=== PATIENT | female | born 1945 | race Caucasian/White ===

== ENCOUNTER → 2021-05-16 00:38 | Outpatient (CLI) | payer MEDICARE, OTHER, SELFPAY ==
[2021-05-16 20:43] LABS: SARS-CoV-2 RNA PCR Positive
== END ==
PROVIDERS: PCP Family Medicine; Visit Provider Physician Assistant
DX: U07.1 COVID-19 (principal)
CPT/HCPCS: C9803; U0003; U0005

== ENCOUNTER 2021-08-25 00:21 | Day surgery (SDC) | payer MEDICARE, OTHER, SELFPAY ==
[2021-08-22 12:27] VITALS: BMI 33.3
[2021-08-25] VITALS (9 sets, daily range): BP systolic 110–130; BP diastolic 53–96; PULSE 72–112; RESP 13–23; TEMP 36.4; O2SAT 92–98; BMI 35.4
--- NOTE | 2021-08-25 07:00 | ECG_ITS ---
Measurements Intervals [place] Rate: 110 P: MO: 0 QRS: -24 QRSD: 122 T: 122 QT: 363 QTc: 493 Interpretive Statements ATRIAL FIBRILLATION WITH RAPID VENTRICULAR RESPONSE WITH 1 ELECTRONIC VENTRICULARLY PACED COMPLEX MODERATE INTRAVENTRICULAR CONDUCTION DELAY [105+ ms QRS DURATION, 80+ ms Q/S IN V1/V2, NO Q AND 60+ ms R IN I/aVL/V5/V6] NONSPECIFIC ST SEGMENT ABNORMALITY NO PREVIOUS ECG AVAILABLE FOR COMPARISON Electronically Signed On 08-25-2021 15:28:24 CDT by Talha Teixeira M.D.
[2021-08-25 07:47] LABS: Anion Gap 7 mmol/L (8-16); Blood Urea Nitrogen 14 mg/dL (7-17); Calcium 9.2 mg/dL (8.4-10.2); Carbon Dioxide 28 mmol/L (22-30); Chloride 104 mmol/L (98-107); Estimated CRCL calculation 63 ml/min; Estimated Glomerular Filt Rate > 60; Glucose 114 mg/dL (65-110); Magnesium 2.2 mg/dL (1.6-2.3); Potassium 4.1 mmol/L (3.4-5.0); Sodium 139 mmol/L (137-145)
--- NOTE | 2021-08-25 08:37 | WPDMODSED ---
Moderate Sedation Note-Pt Data Patient Data Diagnosis: atrial fibrillation Present Complaint: atrial fib Procedure to be performed/Plan: Electrical cardioversion Moderate sedation Allergies Allergy/AdvReac Type Severity Reaction Status Date / Time Penicillins Allergy Severe HIVES/RED Verified 08/25/21 07:35 FACE/DIFFICULTY BREATHING Home Medications Medication Instructions Recorded Confirmed Type amiodarone 400 mg PO BID 08/22/21 08/22/21 History apixaban [Eliquis] 5 mg PO BID 08/22/21 08/22/21 History calcium carbonate 600 mg PO DAILY 08/22/21 08/22/21 History cholecalciferol (vitamin D3) 1,000 unit PO DAILY 08/22/21 08/22/21 History [Vitamin D3] dextran 70-hypromellose [GenTeal 1 drp OPHTHALMIC (EYE) HS 08/22/21 08/22/21 History Tears Mild] duloxetine 90 mg PO DAILY 08/22/21 08/22/21 History furosemide 20 mg PO DAILY PRN 08/22/21 08/22/21 History gabapentin 800 mg PO BID 08/22/21 08/22/21 History glucosamine-chondroitin 1 tablet PO DAILY 08/22/21 08/22/21 History krill oil 500 mg PO DAILY 08/22/21 08/22/21 History ibbveqwcaylm-jllb-uuoss acid 1 tablet PO DAILY 08/22/21 08/22/21 History [Centrum Ultra Women's] triamcinolone acetonide [Kenalog 1 applic DENTAL BID PRN 08/22/21 08/22/21 History in [employer]] vitamin B complex [B 1 tablet PO DAILY 08/22/21 08/22/21 History Complex-Vitamin B12] Current Medications: Active Medications Fentanyl Citrate (Fentanyl Citrate Inj (*Crx) 100 Mcg/2 Ml Vial) 100 mcg IV PUSH ONCE PRN PRN Reason: Cardioversion/SARAH Sodium Chloride (Normal Saline Iv) 1,000 mls @ 30 mls/hr IV CONT .Q24H GABY Midazolam HCl (Midazolam Hcl (*Crx) 2 Mg/2 Ml Vial) 2 mg IV PUSH Q5M PRN PRN Reason: Cardioversion/SARAH Sedation/Anesthesia: No previous sedation/anesthesia problems (including family history). [facility] Past Medical History Medical History (Updated 08/25/21 @ 08:38 by Kp Olmedo MD) Atrial fibrillation Social History Social History Smoking status: Former smoker Tobacco type: cigarettes Additional smoking assessment comments: quit in 1973, light/social smoker for approx. 2-3 years. Alcohol intake: current Drinks per week: 1 Alcohol use details: occasional glass of wine, sometimes one or less Living arrangements: with family Additional living arrangements comments: lives with camila Bautista- has a mother in law Spiritual care concerns: No Mod Sed Physical Exam Physical Exam Pre Procedural Exam: Normal: Appearance, Eyes, Ears, Nose, Neck, Throat, Airway, Lungs, Heart Size, Neuro Exam, Abdomen, Extremities and Skin and Variation: Heart Rate (Tachycardic) and Heart Rhythm (Irregularly irregular) Hours since solid foods: 12 Hours since liquid intake: 12 Mallampati Classification: class II Internal Medicine - PN: Obj Da Vital Signs Vital Signs: Vital Signs - 24 hr 08/25/21 07:36 Temperature 36.4 C L Pulse Rate 109 H Respiratory Rate 23 H Blood Pressure 119/96 H Pulse Oximetry 93 Meds/Results Medications: Active Medications Generic Name Dose Route Start Last Admin Trade Name Freq PRN Reason Stop Dose Admin Fentanyl Citrate 100 mcg 08/25/21 07:00 Fentanyl Citrate Inj (*Crx) 100 Mcg/2 Ml Vial IV PUSH ONCE PRN Cardioversion/SARAH Sodium Chloride 1,000 mls @ 30 mls/hr 08/25/21 07:00 Normal Saline Iv IV CONT .Q24H GABY Midazolam HCl 2 mg 08/25/21 07:00 Midazolam Hcl (*Crx) 2 Mg/2 Ml Vial IV PUSH Q5M PRN Cardioversion/SARAH Labs CBC & Chem 7: 08/25/21 07:27 Labs: Laboratory Results - last 24 hr 08/25/21 07:27 Sodium 139 Potassium 4.1 Chloride 104 Carbon Dioxide 28 Anion Gap 7 L BUN 14 Creatinine 0.80 Estim Creat Clear Calc 63 Estimated GFR > 60 Glucose 114 H Calcium 9.2 Magnesium 2.2 ASA Classification/Sedation ASA Classification/Sedation ASA Class: II Emergent: No Risks: Risks, benefits and alternatives explained and p
--- NOTE | 2021-08-25 08:39 | PM.IMHP ---
H&P: HPI History of Present Illness Date/Time: 08/25/21 08:39 Chief Complaint: Atrial fibrillation Narrative: 75-year-old with atrial fibrillation. Outpatient elective cardioversion recommended. She has had recurrent atrial fibrillation. No chest Review of Systems Review of Systems: All systems reviewed & are unremarkable except as noted in HPI and below Cardiovascular: Cardiovascular: Reports palpitations PMFSH Past Medical History Medical History Atrial fibrillation Social History Social History Smoking status: Former smoker Tobacco type: cigarettes Additional smoking assessment comments: quit in 1973, light/social smoker for approx. 2-3 years. Alcohol intake: current Drinks per week: 1 Alcohol use details: occasional glass of wine, sometimes one or less Living arrangements: with family Additional living arrangements comments: lives with camila Bautista- has a mother in law Spiritual care concerns: No Meds Home Medications and Allergies Home Medications Medication Instructions Recorded Confirmed Type amiodarone 400 mg PO BID 08/22/21 08/22/21 History apixaban [Eliquis] 5 mg PO BID 08/22/21 08/22/21 History calcium carbonate 600 mg PO DAILY 08/22/21 08/22/21 History cholecalciferol (vitamin D3) 1,000 unit PO DAILY 08/22/21 08/22/21 History [Vitamin D3] dextran 70-hypromellose [GenTeal 1 drp OPHTHALMIC (EYE) HS 08/22/21 08/22/21 History Tears Mild] duloxetine 90 mg PO DAILY 08/22/21 08/22/21 History furosemide 20 mg PO DAILY PRN 08/22/21 08/22/21 History gabapentin 800 mg PO BID 08/22/21 08/22/21 History glucosamine-chondroitin 1 tablet PO DAILY 08/22/21 08/22/21 History krill oil 500 mg PO DAILY 08/22/21 08/22/21 History ggxksadvfeji-ochv-odmxr acid 1 tablet PO DAILY 08/22/21 08/22/21 History [Centrum Ultra Women's] triamcinolone acetonide [Kenalog 1 applic DENTAL BID PRN 08/22/21 08/22/21 History in [employer]] vitamin B complex [B 1 tablet PO DAILY 08/22/21 08/22/21 History Complex-Vitamin B12] Allergies Allergy/AdvReac Type Severity Reaction Status Date / Time Penicillins Allergy Severe HIVES/RED Verified 08/25/21 07:35 FACE/DIFFICULTY BREATHING Vital Signs Vital Signs - 24 hr 08/25/21 07:36 Temperature 36.4 C L Pulse Rate 109 H Respiratory Rate 23 H Blood Pressure 119/96 H Pulse Oximetry 93 Exam Const: General: comfortable and no acute distress HENMT: General nose exam: Normal nares present Eyes: Sclera: sclerae normal Neck: Neck: no JVD Carotids: no bruits Resp: Auscultation: clear to auscultation bilaterally Cardio: Rate: tachycardic Rhythm: abnormal rhythm irregularly irregular GI: GI Palp: Yes Soft to palpation Skin: General skin exam: normal color Neuro: Cognition (Neuro): normal cognition Speech: normal speech Extrem: General: normal to inspection Psych: Affect: normal affect H&P: Results Labs Labs: [facility] 08/25/21 07:27 Sodium 139 Potassium 4.1 Chloride 104 Carbon Dioxide 28 BUN 14 Creatinine 0.80 Glucose 114 H Calcium 9.2 Assessment and Plan Assessment and plan (1) Atrial fibrillation: Code(s): I48.91 - Unspecified atrial fibrillation Status: Acute Assessment and Plan: Plan for outpatient elective cardioversion with moderate sedation
--- NOTE | 2021-08-25 08:45 | ECG_ITS ---
Measurements Intervals [place] Rate: 69 P: -34 MD: 188 QRS: -14 QRSD: 125 T: 116 QT: 418 QTc: 451 Interpretive Statements ELECTRONIC ATRIAL PACEMAKER MODERATE INTRAVENTRICULAR CONDUCTION DELAY [105+ ms QRS DURATION, 80+ ms Q/S IN V1/V2, NO Q AND 60+ ms R IN I/aVL/V5/V6] NONSPECIFIC ST & T-WAVE ABNORMALITY COMPARED TO ECG 08/25/2021 07:22:04 ATRIALLY PACED RHYTHM REPLACES ATRIAL FIBRILLATION Electronically Signed On 08-25-2021 15:34:23 CDT by Talha Teixeira M.D.
--- NOTE | 2021-08-25 08:57 | P.PCNCVR_ITS ---
Cardioversion Cardioversion Date of procedure: 08/25/21 Procedure: 1. Outpatient elective electrical cardioversion 2. Moderate sedation Pre-op diagnosis: Atrial fibrillation Post-op diagnosis: Same Indications: Atrial fibrillation Description of procedure: After discussing risks, benefits alternatives of procedure patient agreeable via verbal and written informed consent. Risks discussed include stroke, , adverse reaction to anesthesia, skin irritation or burn. Patient was on telemetry. Serial blood pressure assessments were taken and continuous oxygenation was maintained. Initial pacemaker interrogation was performed confirming still atrial fibrillation. The defibrillator pads were placed in anterior and posterior position. Time-out was taken. Procedure started. Procedure start time 845 a.m. Procedure stop time 8:56 a.m. Complications: None Blood loss: None Sedation: Total 3 mg of Versed and 50 mcg of fentanyl IV were given in divided dosages Patient was monitored and medications were provided byAlison Howell and Gauri Gan RN Findings: Successful mosque of normal sinus rhythm/atrial paced rhythm using 200 joules of synchronized biphasic energy Formal device check was performed following the procedure showing a normally function pacemaker Conclusion: 1. Successful mosque of atrial paced/sinus rhythm using 200 joules of biphasic synchronized energy 2. Moderate sedation
== END 2021-08-25 10:00 | disposition home or self-care (01) ==
PROVIDERS: PCP Family Medicine; Visit Provider Internal Medicine Cardiovascular Disease
PROC: 5A2204Z Restoration of Cardiac Rhythm, Single (ICD-10-PCS; principal; 2021-08-25 08:30)
DX: I48.91 Unspecified atrial fibrillation (principal); Z95.0 Presence of cardiac pacemaker; I45.9 Conduction disorder, unspecified; Z87.891 Personal history of nicotine dependence; Z79.01 Long term (current) use of anticoagulants
CPT/HCPCS: 36415; 80048; 83735; 92960; J2250; J2310; J3010; J7030

== ENCOUNTER 2022-01-22 13:55 | Outpatient (RCR) | payer MEDICARE, OTHER, SELFPAY ==
[2022-01-22 14:39] LABS: Hematocrit 32.8 % (37.0-47.0); Hemoglobin 10.2 g/dL (12.0-15.0); Mean Corpuscular HGB Conc 31.1 g/dl (32-36); Mean Corpuscular Volume 99.7 fl (80-100); Mean Platelet Volume 8.7 fl (7.4-10.4); Platelet Count Result 267 k/mm3 (150-375); Red Blood Count 3.29 M/mm3 (4.2-5.4); Red Cell Distribution Width 15.8 % (11.5-14.5); White Blood Count 5.4 K/mm3 (4.5-10.0)
== END 2022-04-22 23:59 | disposition home or self-care (01) ==
LOC: HOME HLTH 13:55
PROVIDERS: PCP Family Medicine; Visit Provider Family Medicine
DX: R23.1 Pallor (principal); Z48.812 Encounter for surgical aftercare following surgery on the circulatory system
CPT/HCPCS: 36415; 85027

== ENCOUNTER 2022-04-15 08:52 | Outpatient (CLI) | payer MEDICARE, OTHER, SELFPAY ==
[2022-04-15 09:59] LABS: Basophils Absolute Auto 0.1 K/mm3 (0.0-0.1); Eosinophils Absolute Auto 0.1 K/mm3 (0-0.3); Eosinophils Percent Auto 2.2 % (0-4.4); Hematocrit 40.5 % (37.0-47.0); Hemoglobin 12.8 g/dL (12.0-15.0); Immature Granulocyte Absolute 0.01 K/mm3 (0.00-0.031); Immature Granulocyte Percent A 0.2 % (0-0.5); Lymphocytes Absolute Auto 1.14 K/mm3 (0.9-3.2); Lymphocytes Percent Auto 22.7 % (18.3-44.2); Mean Corpuscular HGB Conc 31.6 g/dl (32-36); Mean Corpuscular Hemoglobin 27.8 pg (26-34); Mean Platelet Volume 9.2 fl (7.4-10.4); Monocytes Absolute Auto 0.5 K/mm3 (0.1-0.6); Monocytes Percent Auto 9.2 % (2.6-8.5); Neutrophils Absolute Auto 3.3 K/mm3 (1.3-6.7); Neutrophils Percent Auto 64.7 % (45.5-73.1); Platelet Count Result 232 k/mm3 (150-375); Red Cell Distribution Width 13.6 % (11.5-14.5)
== END 2022-04-15 08:53 | disposition home or self-care (01) ==
LOC: ANHLAB 08:55
PROVIDERS: PCP Family Medicine; Visit Provider Nurse Practitioner Adult Health
DX: R00.0 Tachycardia, unspecified (principal); Z98.890 Other specified postprocedural states
CPT/HCPCS: 36415; 85025